=== PATIENT | female | born 1990 | race Caucasian/White ===

== ENCOUNTER 2020-08-07 12:45 | Emergency (ER) | payer OTHER, SELFPAY ==
[2020-08-07 13:00] VITALS: BP 109/79; PULSE 100; RESP 17; TEMP 36.8; O2SAT 99
--- NOTE | 2020-08-07 13:04 | ED.GENADULT ---
HPI - General Adult General Chief complaint: Urogenital-Female Stated complaint: uti Time Seen by Provider: 08/07/20 12:50 Source: patient Mode of arrival: ambulatory Limitations: no limitations History of Present Illness HPI narrative: 30 y/o female. PMH Includes: Seasonal Allergies, UTI. Presents to [facility] today with acute complaints of urinary frequency, dysuria for the past 1 week. She reports subtherapeutic relief with OTC remedies. Client notes to have had UTI's historically, and is pretty sure this is the case because it feels the same . No fever, chills. No abdominal pain, N/V, Flank pain, pelvic pain, or vaginal discharge. No hematuria. She is without additional acute complaints of illness upon exam. Related Data Home Medications Medication Instructions Recorded Confirmed fluticasone propionate [Flonase 50 mcg INTRANASAL DAILY 08/07/20 08/07/20 Allergy Relief] Allergies Allergy/AdvReac Type Severity Reaction Status Date / Time No Known Allergies Allergy Verified 08/07/20 12:54 Review of Systems Review of Systems: Narrative: CONSTITUTIONAL: Denies fever, chills, sweats. EYES: Denies visual changes, redness, discharge. ENT: Denies rhinorrhea, congestion, sore throat, otalgia. CARDIOVASCULAR: Denies chest pain, palpitations, edema. RESPIRATORY: Denies dyspnea, wheezing, cough GASTROINTESTINAL: Denies abdominal pain, nausea, vomiting, diarrhea. GENITOURINARY: Urinary frequency & dysuria. No hematuria, abnormal discharge SKIN: Denies rash or itching. MUSCULOSKELETAL: Denies acute back pain, joint pain, or myalgia. NEUROLOGIC: Denies numbness, or focal weakness. PSYCHIATRIC: Denies anxiety or depression. All systems reviewed & are unremarkable except as noted in HPI and below PMFSH Social History Social History Gender identity (if verbalized by the patient): Female Exam Narrative: Exam Narrative: GENERAL: This is a well-nourished, well-developed patient, in no apparent distress. HEAD: normocephalic, atraumatic. EYES: PERRL. Sclera clear/white. EARS: External ears normal. NOSE: External nose normal with no obvious nasal discharge. THROAT: Mucous membranes moist, posterior pharynx clear. NECK: Neck supple, non-tender without lymphadenopathy, masses or thyromegaly. CARDIOVASCULAR: Regular rate and rhythm without murmurs, gallops, or rubs. RESPIRATORY: Clear to auscultation. Breath sounds equal bilaterally. No wheezes, rales, or rhonchi. GASTROINTESTINAL: Abdomen soft, non-tender, nondistended. Bowel sounds are active. No hepato-splenomegaly, or palpable masses. No guarding. No CVA tenderness. SKIN: warm, intact with no suspicious lesions or rash, good texture and turgor. NEURO: awake, alert, and oriented to person, place and time. There were no obvious focal neurologic abnormalities. Steady gait Course Vital Signs Vital signs: Vital Signs Temperature 36.8 C 08/07/20 13:00 Pulse Rate 100 08/07/20 13:00 Respiratory Rate 08/07/20 13:00 Blood Pressure 109/79 08/07/20 13:00 Pulse Oximetry 99 08/07/20 13:00 Temperature 36.8 C 08/07/20 13:00 Pulse Rate 100 08/07/20 13:00 Respiratory Rate 17 08/07/20 13:00 Blood Pressure 109/79 08/07/20 13:00 Pulse Oximetry 99 08/07/20 13:00 Medical Decision Making MDM Narrative Medical decision making narrative: -Urinalysis positive Nitrites, will send for Cx. -Symptomatic, will start oral Macrobid & Pyridium regimen as directed. -Fluids, avoid high sugary substances. -May resume additional OTC remedies for symptomatic relief. -PCP F/U 1 WK. -ER with emergent health status changes. Client agrees. Differential Diagnosis Differential Diagnosis: Differential Diagnosis: Consideration of the following conditions may be warranted for the presenting problem, they are not final diagnoses: Likely UTI, Cystitis, Nephrolithiasis, bacterial vaginosis, Nep
== END 2020-08-07 13:20 | disposition home or self-care (01) ==
PROVIDERS: Emergency Provider Nurse Practitioner Adult Health
DX: N30.90 Cystitis, unspecified without hematuria (principal)
CPT/HCPCS: 81003; 87077; 87086; 87088; 87186; 99203; G0463